=== PATIENT | female | born 1995 | race Caucasian/White ===

== ENCOUNTER 2020-01-15 17:41 | Emergency (ER) | payer BC ==
[2020-01-15 17:57] VITALS: BP 137/80
--- NOTE | 2020-01-15 18:40 | ED Physician Documentation ---
History of Present Illness - Stated complaint Stated Complaint: COUGH,CHEST HEAVINESS,BODY ACHES - Chief complaint Chief Complaint: Resp - History obtained from History obtained from: Patient - History of Present Illness Timing: How many weeks ago (1) Pain level max: 0 Pain level now: 0 - Additonal information Additional information: 24-year-old female presents to the emergency department with a cough for the past week. She has rhinorrhea and congestion as well. Minimal shortness of breath at times. No vomiting. She is not . She is not breast-feeding. Nothing makes it better or worse. He has not taken anything for this at home. She works at a hotel. Review of Systems Ten Systems: 10 systems reviewed and negative Constitutional: denies: Fever, Chills Nose: reports: Rhinorrhea / runny nose, Congestion Respiratory: reports: Cough GI: denies: Vomiting, Diarrhea : denies: Dysuria Skin: denies: Rash Musculoskeletal: denies: Neck pain, Back pain Neurologic: denies: Headache PD PAST MEDICAL HISTORY - Past Medical History Past Medical History: Yes Neuro: Migraines Psych: Anxiety Other Past Medical History: PCOS - Past Surgical History Past Surgical History: Yes - Allergies Allergies/Adverse Reactions: Allergies Allergy/AdvReac Type Severity Reaction Status Date / Time clindamycin Allergy Hives Verified 01/15/20 17:58 Sulfa (Sulfonamide Allergy Anaphylaxis Verified 01/15/20 17:58 Antibiotics) neosprin Allergy Hives Uncoded 01/15/20 17:58 - Social History Does the pt smoke?: No Smoking Status: Never smoker Does the pt drink ETOH?: Yes Does the pt have substance abuse?: No - Immunizations Immunizations are current?: Yes PD ED PE NORMAL - Vitals Vital signs reviewed: Yes - General General: Alert and oriented X 3, No acute distress - HEENT HEENT: Ears normal, Moist mucous membranes, Pharynx benign - Neck Neck: Supple, no meningeal sign, No adenopathy - Cardiac Cardiac: RRR, Strong equal pulses - Respiratory Respiratory: No respiratory distress, Clear bilaterally - Abdomen Abdomen: Soft, Non tender, Non distended - Derm Derm: Warm and dry, No rash - Neuro Neuro: Alert and oriented X 3 - Psych Psych: Normal mood, Normal affect Results - Vitals Vitals: Vital Signs - 24 hr 01/15/20 17:54 Temperature 36.2 C L Heart Rate 86 Respiratory 18 Rate Blood Pressure 137/80 H O2 Saturation 100 Oxygen O2 Source Room air PD MEDICAL DECISION MAKING - ED course Complexity details: reviewed results, re-evaluated patient, considered differential, d/w patient ED course: Patient is well-appearing, nontoxic. Afebrile. No hypoxia. No respiratory distress. We will continue supportive care and have her follow-up with her doctor. Patient is low risk for coronavirus and complications from coronavirus. Patient counseled regarding signs and symptoms for which I believe and urgent re-evaluation would be necessary. Patient with good understanding of and agreement to plan and is comfortable going home at this time This document was made in part using voice recognition software. While efforts are made to proofread this document, sound alike and grammatical errors may occur. Departure - Departure Disposition: 01 Home, Self Care Clinical Impression: Upper respiratory tract infection Qualifiers: URI type: unspecified viral URI Qualified Code(s): J06.9 - Acute upper respiratory infection, unspecified Condition: Good Instructions: ED URI Viral Follow-Up: your,doctor as needed. [Other] Comments: Go home and rest. Drink plenty of fluids. Return if you worsen. [facility], do not return to work or school until your symptoms have subsided for at least 24 hours. Forms: Activity restrictions
== END 2020-01-15 18:47 | disposition home or self-care (01) ==
LOC: ED 17:41
DX: J06.9 Acute upper respiratory infection, unspecified (principal)
CPT/HCPCS: 99282; 99284

== ENCOUNTER 2020-08-28 15:20 | Emergency (ER) | payer OTHER, BC ==
[2020-08-28] MEDS ORDERED: LIDOCAINE 1% 2 ML VIAL MC ONE (16:10)
[2020-08-28] MEDS ORDERED: AZITHROMYCIN 250 MG TABLET PO STA (16:10)
[2020-08-28] MEDS ORDERED: cefTRIAXone 250 MG VIAL IM STA (16:10)
[2020-08-28] MEDS ORDERED: metroNIDAZOLE 250 MG TABLET PO STA (16:10)
[2020-08-28] MEDS ORDERED: ULIPRISTAL ACETATE 30 MG TABLET PO STA (16:10)
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
[2020-08-28 18:16] VITALS: BP 124/84
[2020-08-30 06:48] LABS: HIV AG/AB 4TH GEN NON-REACTIVE (NON-REACTIVE)
[2020-08-30 09:06] LABS: HEPATITIS C ANTIBODY NON-REACTIVE (NON-REACTIVE)
== END 2020-08-28 18:25 | disposition home or self-care (01) ==
LOC: ED 15:20
DX: T76.21XA Adult sexual abuse, suspected, initial encounter (principal)
CPT/HCPCS: 0133C; 36415; 86317; 86803; 87389; 96372; A9270

== ENCOUNTER 2020-08-31 07:00 | Outpatient (CLI) | payer BC | END 2020-08-31 23:59 | disposition home or self-care (01) | LOC: LAB.R 07:00 | PROVIDERS: ATTEND Physician Assistant | DX: K52.1 Toxic gastroenteritis and colitis (principal) | CPT/HCPCS: 87493 ==